=== PATIENT | female | born 1990 | race African-American/Black ===

== ENCOUNTER 2024-02-24 14:09 | Outpatient (CLI) | payer MEDICAID, SELFPAY | END 2024-02-24 14:10 | disposition home or self-care (01) | LOC: NFLDREF 14:10 | PROVIDERS: PCP Family Medicine; Visit Provider Obstetrics & Gynecology | DX: Z13.1 Encounter for screening for diabetes mellitus (principal) | CPT/HCPCS: 82947 ==